=== PATIENT | male | born 1965 | race Two or more races ===

== ENCOUNTER 2025-03-18 16:19 | Emergency (ER) | payer MEDICAID, SELFPAY ==
[2025-03-18 16:43] VITALS: BP 144/80; PULSE 89; RESP 16; TEMP 36.8; O2SAT 95; BMI 28.5
--- NOTE | 2025-03-18 17:18 | XR_ITS ---
Examination: CT abdomen and pelvis without contrast. Coronal 3-D reconstructions. Sagittal 2-D reconstructions. Date and time of exam:March 18, 2025 1806 hrs. Indications: Left lower abdominal pain beginning 4 hours ago CTDI: vol (mGy): 7.03 DLP: (mGycm): 431 Technique: Axial images of the abdomen have been obtained, 3 mm slice thickness Intravenous contrast material has not been administered. Low dose protocols were performed. One or more of the following dose reduction techniques were used; automated exposure control, adjustment of the mA and/or KV according to patient size, use of iterative reconstruction technique. Findings: Atelectasis in the lower lung zones No visualized liver splenic lesion No gallstones No pancreatic or adrenal mass No renal or ureteral calculi, no hydronephrosis Aorta normal size Normal appendix No bowel obstruction No diverticulitis No significant prostatomegaly Contracted urinary bladder Moderate osteopenia Impression: No renal or ureteral calculi, no hydronephrosis Normal appendix No bowel obstruction diverticulitis or free air
--- NOTE | 2025-03-18 17:20 | PD.EDRME ---
Rapid Medical Screening Exam RME Arrival date/time: 03/18/25 16:19 59-year-old male presents to the emergency department today for complaints of left lower abdominal pain left flank pain ongoing since 3 PM Chief Complaint: Abdominal Pain Vital signs: Vital Signs Temperature 98.2 F 03/18/25 16:43 Pulse Rate 89 03/18/25 16:43 Respiratory Rate 16 03/18/25 16:43 Blood Pressure 144/80 H 03/18/25 16:43 Pulse Oximetry (%) 95 03/18/25 16:43 Oxygen Delivery Method Room Air 03/18/25 16:43
[2025-03-18 17:45] LABS: Collection Type, Urine Clean Catch
[2025-03-18 17:58] LABS: Bilirubin,Urine Negative (Negative); Blood,Urine 3+ (Negative); Clarity,Urine Clear (Clear/Hazy); Color,Urine Yellow (Lt Yel-Yel); Culture Indicated,Urine Not Indicated; Glucose, Urine Negative (Negative); Ketones,Urine Negative (Negative); Leukocyte Esterase,Urine Negative (Negative); Nitrite,Urine Negative (Negative); PH,Urine 6.0 (5.0-7.0); Protein,Urine 1+ (Neg - Trace); RBC,Urine 24 /hpf (0-3); Specific Gravity,Urine 1.041 (1.001-1.035); Squamous Epithelial Cell,Urine < 1 /hpf (0-5); Urobilinogen,Urine 4.0 mg/dL (0.0-1.0); WBC,Urine 3 /hpf (0-5)
[2025-03-18 18:04] LABS: Basophils # (Auto) 0.1 Thou/mm3 (0.0-0.2); Basophils % (Auto) 0 % (0-2.5); Eosinophils # (Auto) 0.1 Thou/mm3 (0.0-0.5); Eosinophils % (Auto) 0 % (0-10); Hematocrit 42.8 % (41.0-53.0); Hemoglobin 14.8 g/dL (13.5-16.0); Immature Granulocytes Auto 0.10 Thou/mm3 (0.00-0.00); Lymphocytes # (Auto) 2.5 Thou/mm3 (1.0-4.8); Lymphocytes % (Auto) 14 % (10-50); Mean Corpuscular HGB Conc 34.6 g/dl (31.0-37.0); Mean Corpuscular Hemoglobin 29.8 pg (25.0-35.0); Mean Corpuscular Volume 86 fL (80-100); Monocytes # (Auto) 2.1 Thou/mm3 (0.0-0.8); Monocytes % (Auto) 12 % (0-12); Neutrophils # (Auto) 12.9 Thou/mm3 (1.8-7.7); Neutrophils % (Auto) 73 % (37-80); Nucleated Red Blood Cell # 0.00 Thou/mm3 (0.00-0.00); Nucleated Red Blood Cell % 0 /100 WBC (0); Platelet Count 244 Thou/mm3 (140-440); RDW Standard Deviation 42.1 fL (35.1-43.9); Red Blood Count 4.96 Miln/mm3 (4.50-5.90); White Blood Count 17.8 Thou/mm3 (3.8-10.6)
[2025-03-18 18:34] LABS: Alanine Aminotransferase 46 U/L (10-49); Albumin, Serum 5.0 gm/dL (3.5-5.0); Albumin/Globulin Ratio 2.0 (1.2-2.2); Alkaline Phosphatase 91 U/L (46-116); Amylase 45 U/L (30-118); Anion Gap 11 (7-16); Aspartate Amino Transferase 36 U/L (0-34); BUN/Creatinine Ratio 24 Ratio (12-20); Bilirubin,Total 0.7 mg/dL (0.3-1.2); Blood Urea Nitrogen 26 mg/dL (9-23); Calcium 9.7 mg/dL (8.3-10.6); Calcium (Corrected) 9.7 mg/dL (8.5-10.1); Carbon Dioxide 23.4 mMol/L (20.0-31.0); Chloride 103 mMol/L (98-107); Creatinine (Component) 1.1 mg/dL (0.6-1.3); Estimated Creatinine Clearance 76.9 mL/min (>60); Globulin 2.5 gm/dL (2.3-3.5); Glucose 106 mg/dL (74-106); Osmolality,Calculated 278 (275-295); Potassium 4.1 mMol/L (3.4-5.1); Sodium 137 mMol/L (136-145); Total Protein 7.5 gm/dL (5.7-8.2); Troponin I < 0.020 ng/mL (0.0-0.045); eGFR > 60 See Note
--- NOTE | 2025-03-18 20:09 | EDNOTE_ITS ---
ED Abdominal Pain RME/HPI General Chief Complaint: Abdominal Pain Stated complaint: ABD PAIN, COUGH Time seen by provider: 03/18/25 19:05 Arrival date/time: 03/18/25 16:19 RME / HPI RME / HPI narrative: 59-year-old male presents to the emergency department today for complaints of left lower abdominal pain left flank pain ongoing since 3 PM. Described as colicky, severity moderate. Denies any hematuria or dysuria. Patient also comp laining of nonproductive cough for several days, severity mild. Denies any shortness of breath denies any chest pain coughing denies any fever. No medication was taken prior to ER visit. Related Data Home Medications ?Medication ?Instructions ?Recorded ?Confirmed TAMSULOSIN HCL 0.4 mg PO QDAY ##30 09/16/15 lovastatin 40 mg tablet 40 mg PO HS ##30 09/16/15 Previous Rx's ?Medication ?Instructions ?Recorded albuterol sulfate 90 mcg/actuation 180 mcg inhalation Q6H PRN 07/29/22 breath activated powder shortness of breath #1 ea inhaler,sensor (Proair Digihaler) benzonatate 200 mg capsule 200 mg PO BID PRN cough #30 caps 03/18/25 ibuprofen 800 mg tablet 800 mg PO Q8H PRN pain #30 t abs 03/18/25 Allergies Allergy/AdvReac Type Severity Reaction Status Date / Time No Known Allergies Allergy Verified 07/29/22 10:33 Review of Systems Review of Systems Narrative Review of Systems: Review of system reviewed and within normal limits except mentioned in HPI ED Exam Narrative Physical exam: VITAL SIGNS: Reviewed. GENERAL APPEARANCE: Alert and interactive, follows commands, no acute distress, HEAD AND FACE: Non-traumatic. ENT: PERRL, pink conjunctivitis, eyelid no trauma, Mucous membrane moist. NECK: Supple, nontender, no nuchal rigidity. CHEST: No tenderness, no crepitus, no paradoxical movement, no retractions. LUNGS: Clear, well ventilated, symmetric, no rales, no wheezing, no ronchi, no stridor, good breath sounds bilaterally. HEART: Regular rate, regular rhythm, no murmur, no gallops. ABDOMEN: Soft, positive bowel sounds, nondistended, no guarding, nontender, no rebound, no masses, RECTAL: Deferred. GENITAL: Deferred. NEUROLOGICAL: Gross motor function intact sensory function intact, Appropriate for age. MUSCULOSKELETAL: low back nontender, full range of motion. EXTREMITIES: Nontender, full range of motion. SKIN: Color pink, dry, no rash, no lacerations, no abrasions, no contusions. LYMPHATICS: Deferred. Course Quality Measures none Orders Category Date Time Status CT abdomen pelvis wo con Stat Exams 03/18/25 17:18 Completed Amylase Stat Lab 03/18/25 17:57 Completed CBC Stat Lab 03/18/25 17:57 Completed Comprehensive Metabolic Panel Stat Lab 03/18/25 17:57 Completed Troponin I Stat Lab 03/18/25 17:57 Completed UA, C/S IF [Urinalysis, C/S if Indicated] Stat Lab 03/18/25 17:28 Completed Vital Signs Vital signs: Vital Signs Temperature 98.2 F 03/18/25 16:43 Pulse Rate 89 03/18/25 16:43 Respiratory Rate 16 03/18/25 16:43 Blood Pressure 144/80 H 03/18/25 16:43 Pulse Oximetry (%) 95 03/18/25 16:43 Oxygen Delivery Method Room Air 03/18/25 16:43 Abdominal Pain MDM MDM Narrative MDM Narrative:: 59-year-old male presents to the emergency department today for complaints of left lower abdominal pain left flank pain ongoing since 3 PM. Described as colicky, severity moderate. Denies any hematuria or dysuria. Patient also complaining of nonproductive cough for several days, severity mild. Denies any shortness of breath denies any chest pain coughing denies any fever. No medication was taken prior to ER visit. Patient's laboratory workup is significant for leukocytosis of 17.8, urinalysis positive hematuria. CT scan of the abdomen and pelvis, unremarkable. Patient's symptoms is probably related to renal colic, patient probably passed the stone. Currently the patient is not having any abdominal pain. Patient was given Tessalon for the cough. Imaging of the cyst is not needed at this time patient not having any fever. No shortness of breath no chest pain on coughing. Patient leukocytosis is probably reactive in nature. He is satting 95% on room air. Patient data External records reviewed:: None Clinical information provided by:: patient Social determinants that could affect healthcare access:: none Patient has the following chronic illnesses:: None How is presenting disease/condition affected by chronic disease/condition?: no chronic disease Evaluation data The following diagnostics were reviewed and interpreted by me:: lab results and radiology exam(s) Lab and/or radiology exams considered but not ordered:: None Interpretation Summary: See results MDM Medications / Prescriptions Medications or Prescriptions considered but not ordered:: None Medication administrations:: None Consultations Consultation(s) initiated? (list below): No Diagnosis Differential diagnosis abdominal pain: abdominal pain, calculus of kidney and other (Cough) Most likely diagnosis given after review of the tests above:: Renal colic, cough Admission Indicated Admission indicated?: not indicated Admission Request Was there a request for admission?: No Disposition Plan Disposition Plan: Discharge Discharge Attestation Discharge Attestation: The patient and all family members were given an opportunity to ask questions and understood the discharge instructions. Discharge instructions specifically effects, indications for sooner follow up or return to the emergency department, and the expected course of current diagnosis. Patient condition: Stable Discharge Plan Plan Patient Disposition: HOME (Self Care) Discharge Disposition comment: Stable Prescriptions/Referrals Prescriptions/Med Rec: New benzonatate 200 mg capsule 200 mg PO BID PRN (Reason: cough) Qty: 30 0RF ibuprofen 800 mg tablet 800 mg PO Q8H PRN (Reason: pain) Qty: 30 0RF No Action lovastatin 40 MG tablet 40 mg PO HS Qty: 30 TAMSULOSIN HCL 0.4 MG CAP.ER.24H 0.4 mg PO QDAY Qty: 30 Proair Digihaler 90 mcg/actuation aero powdr breath act w/sensor 180 mcg inhalation Q6H PRN (Reason: shortness of breath) Qty: 1 0RF Referrals: Karlene Hatfield PA-C [Primary Care Provider] - In 1 week Problem List Clinical Impression: Renal colic, Cough Patient/Caregiver Discharge Instructions Discharge Activity: activity as tolerated Education Materials: Anatomy of the Male Urinary Tract Print Language: Occitan Stand Alone Forms: Madelaine Award Info., Patient Portal Info Letter CHRISTEN/TELMA Supervising Physician MELITON Supervising Physician: MD Javy
== END 2025-03-18 20:17 | disposition home or self-care (01) ==
PROVIDERS: Nurse Practitioner Primary Care; Emergency Provider Emergency Medicine; PCP Physician Assistant
DX: N23 Unspecified renal colic (principal); R05.9 Cough, unspecified
CPT/HCPCS: 36415; 74176; 80053; 81001; 82150; 84484; 85025; 99283